=== PATIENT | female | born 1975 | race Caucasian/White ===

== ENCOUNTER 2016-08-15 08:02 | Emergency (ER) | payer MEDICAID ==
[~2016-08-15] VITALS: Ht 162.6 cm; Wt 66.5 kg
[~2016-08-15 08:02] MED LIST: APRISO; MULT-464 PO; NORE0.3522 PO
[2016-08-15 09:48] LABS: ASPARTATE AMINO TRANSFERASE 16 U/L (15-37); BLOOD UREA NITROGEN 12 mg/dL (7-18)
[2016-08-15] MEDS ORDERED: MESA0.37 PO (10:46)
[2016-08-15] MEDS ORDERED: ONDANSETRON ODT 4 MG ONE (11:22)
[2016-08-15] MEDS ORDERED: ONDANSETRON ODT 4 MG PO ONE (11:30)
[2016-08-15 14:00] VITALS: BP 111/61
== END 2016-08-15 14:03 | disposition home or self-care (01) ==
LOC: ED 11:43
DX: K50.10 Crohn's disease of large intestine without complications (principal); N83.202 Unspecified ovarian cyst, left side
CPT/HCPCS: 36415; 74176; 80053; 81001; 83690; 85025; 87086; 93005; 99285; Q0162

== ENCOUNTER 2016-09-21 08:30 | Emergency (ER) | payer MEDICAID ==
[~2016-09-21] VITALS: Ht 162.6 cm; Wt 62.8 kg
[~2016-09-21 08:30] MED LIST changes: +MESA0.37 PO
[2016-09-21 09:38] VITALS: BP 130/81
== END 2016-09-21 09:40 | disposition home or self-care (01) ==
LOC: ED 09:26
DX: K64.5 Perianal venous thrombosis (principal); K50.90 Crohn's disease, unspecified, without complications; F17.200 Nicotine dependence, unspecified, uncomplicated
CPT/HCPCS: 99283

== ENCOUNTER 2017-09-14 11:27 | Emergency (ER) | payer MEDICAID ==
[~2017-09-14] VITALS: Ht 162.6 cm; Wt 76.8 kg
[~2017-09-14 11:27] MED LIST changes: -MESA0.37 PO; +MESA0.372 PO
[2017-09-14 11:31] VITALS: BP 104/74
[2017-09-14 12:05] LABS: MICROSCOPIC INDICATED
[2017-09-14 12:23] LABS: CULTURE INDICATED? YES
== END 2017-09-14 14:26 | disposition home or self-care (01) ==
LOC: ED 14:20
DX: S39.012A Strain of muscle, fascia and tendon of lower back, initial encounter (principal); X58.XXXA Exposure to other specified factors, initial encounter; Y93.89 Activity, other specified; Y99.8 Other external cause status; Y92.89 Other specified places as the place of occurrence of the external cause
CPT/HCPCS: 81001; 87086; 99284

== ENCOUNTER 2017-11-29 13:54 | Emergency (ER) | payer MEDICAID ==
[~2017-11-29] VITALS: Ht 162.6 cm; Wt 77.2 kg
[2017-11-29 14:00] VITALS: BP 124/84
[2017-11-29] MEDS ORDERED: FAMOTIDINE 20 MG TABLET PO ONE (14:30)
[2017-11-29] MEDS ORDERED: FAMOTIDINE 20 MG TABLET ONE (14:36)
== END 2017-11-29 15:36 | disposition home or self-care (01) ==
LOC: ED 15:30
DX: H10.89 Other conjunctivitis (principal); T36.1X5A Adverse effect of cephalosporins and other beta-lactam antibiotics, initial encounter; Z87.891 Personal history of nicotine dependence
CPT/HCPCS: 99284; J7512; Q0177

== ENCOUNTER 2018-12-28 09:16 | Emergency (ER) | payer MEDICAID ==
[~2018-12-28] VITALS: Ht 162.6 cm; Wt 69.5 kg
--- NOTE | 2018-12-28 09:39 | NUR ---
IN RESTROOM WHEN CALLED FOR TRIAGE
--- NOTE | 2018-12-28 10:09 | NUR ---
THIS IS A 43 YO FEMALE COMING IN FOR "VAGINAL PROBLEMS". PATIENT STATES THAT ONE MONTH AGO SHE WENT TO URGENT CARE FOR LABIAL SWELLING, THEY DIAGNOSED HER WITH YEAST INFECTION, PATIENT STATES "ANTIFUNGALS AND CREAMS DIDN'T HELP, NOW I HAVE A RASH THAT SPREAD TO MY BUTTCHEEKS". PATIENT STATES THAT A COUPLE YEARS AGO SHE HAD RECURRENT BACTERIAL VAGINOSIS, PT HAS HX OF TUBAL LIGATION, PT IS SEXUALLY ACTIVE AND HAS HAD ONE PARTNER FOR MANY YEARS. PT STATES THAT SHE DOES NOT USE ANY PROTECTION. PT HAS HAD A WHITE DISCHARGE FOR THE PAST TWO MONTHS, STATES THAT IT HAS BEEN A COUPLE YEARS SINCE LAST PAP SMEAR. PT IS . PT RESTING ON GURNEY, DENIES FURTHER NEEDS AT THIS TIME.
[2018-12-28] MEDS ORDERED: USTE90DI IM (10:24)
[2018-12-28 10:33] LABS: MICROSCOPIC INDICATED
[2018-12-28 10:46] LABS: HCG UR SG 1.006 (1.003-1.030)
[2018-12-28 10:49] LABS: CULTURE INDICATED? YES
[2018-12-28 11:01] LABS: CLUE CELLS PRESENT (NONE SEEN); WET PREP WBCS FEW (FEW)
--- NOTE | 2018-12-28 11:19 | NUR ---
PT RESTING, VERBALIZED NO NEEDS AT THIS TIME.
[2018-12-28] MEDS ORDERED: LIDOCAINE-MPF 1%, 5ML ONE (11:27)
[2018-12-28] MEDS ORDERED: CEFTRIAXONE 250 MG ONE (11:27)
[2018-12-28] MEDS ORDERED: AZITHROMYCIN 500 MG TABLET ONE (11:27)
[2018-12-28] MEDS ORDERED: AZITHROMYCIN 500 MG TABLET PO ONE (11:30)
[2018-12-28] MEDS ORDERED: CEFTRIAXONE 250 MG IM ONE (11:30)
[2018-12-28 11:45] VITALS: BP 130/70
--- NOTE | 2018-12-28 11:45 | NUR ---
Patient/Caregiver given discharge instructions and they have confirmed that they understand the instructions. Patient ambulatory with steady gait.
== END 2018-12-28 11:47 | disposition home or self-care (01) ==
LOC: ED 11:30
DX: B37.3 Candidiasis of vulva and vagina (principal); N76.0 Acute vaginitis; K50.90 Crohn's disease, unspecified, without complications
CPT/HCPCS: 81001; 81025; 87086; 87210; 87491; 87591; 87808; 96372; 99283; J0696